=== PATIENT | male | born 1975 | race Caucasian/White ===

== ENCOUNTER 2019-08-07 18:43 | Emergency (ER) | payer BC ==
[2019-08-07] MEDS ORDERED: Aspirin 81 MG Tab.Chew PO ONE (18:57)
[2019-08-07 19:33] LABS: ANION GAP 13.6; CHLORIDE,CL 101 mmol/L (101-111); SODIUM,NA 138 mmol/L (135-145)
--- NOTE | 2019-08-07 19:53 | EDM.PDOC ---
<Mayela Irvin - Last Filed: 08/07/19 19:47> ED HPI GENERAL MEDICAL PROBLEM - General Chief Complaint: Chest Pain Stated Complaint: CHEST PAINS Time Seen by Provider: 08/07/19 19:10 Source of Information: Reports: Patient History Limitations: Reports: No Limitations - History of Present Illness INITIAL COMMENTS - FREE TEXT/NARRATIVE: Patient is a 44 year old male with PMH of MS presenting to the ED with chest pain that woke him up from sleep at 3am on 08/07. He awoke from a dream that he was dying from a heart attack. He describes the pain to be a sharp shock quality with 4/10 intensity, localized to the center of the chest without radiation, and independent of exertion. He denies SOB, cough, dizziness, lightheadedness, abdominal pain, melena or hematochezia. The pain lasts 1-2 seconds and he is able to carry on his tasks. He has had 4 episodes of this chest pain while in the ED. He reports more stress in the last 6 months including the sudden of his father. He ate hamburger, macaroni, tomato soup, and drank orange juice last night before bed. He denies taking ASA or ibuprofen other than occasionally if headaches occur. Denies smoking. Drinks ETOH moderately and occasionally. Onset: Sudden Onset Date: 08/07/19 Onset Time: 03:00 Duration: Other (1-2 sec) Location: Reports: Chest (center of chest ) Quality: Reports: Sharp Severity: Moderate Improves with: Reports: None Worsens with: Reports: None Mid-Sternal Pain Score (Numeric/FACES): 4 - Related Data Allergies Allergy/AdvReac Type Severity Reaction Status Date / Time No Known Allergies Allergy Verified 08/07/19 18:51 Home Meds: Home Meds Fingolimod HCl [Gilenya] 1 cap PO DAILY 08/07/19 [History] Past Medical History Neurological History: Reports: MS - Past Surgical History Neurological Surgical History: Reports: None Social & Family History - Family History Family Medical History: Noncontributory - Tobacco Use Smoking Status *Q: Unknown Ever Smoked Second Hand Smoke Exposure: No - Caffeine Use Caffeine Use: Reports: Coffee - Recreational Drug Use Recreational Drug Use: No ED ROS GENERAL - Review of Systems Constitutional: Reports: No Symptoms HEENT: Reports: No Symptoms Respiratory: Reports: No Symptoms Cardiovascular: Reports: Chest Pain Endocrine: Reports: No Symptoms GI/Abdominal: Reports: No Symptoms Neurological: Reports: No Symptoms Psychiatric: Reports: No Symptoms Course - Vital Signs Last Recorded V/S: Last Vital Signs Temp 97.7 F 08/07/19 18:48 Pulse 77 08/07/19 18:48 Resp 18 08/07/19 18:48 BP 123/79 08/07/19 20:57 Pulse Ox 100 08/07/19 18:48 - Orders/Labs/Meds Orders: Active Orders 24 hr Category Date Time Status EKG Documentation Completion [RC] DAILY Care 08/07/19 18:53 Active Labs: Laboratory Tests 08/07/19 08/07/19 08/07/19 Range/Units 19:02 19:02 19:02 WBC 7.8 (5.0-10.0) 10^3/uL RBC 4.83 (4.6-6.2) 10^6/uL Hgb 15.1 (14.0-18.0) g/dL Hct 44.1 (40.0-54.0) % MCV 91.3 (80-100) fL MCH 31.3 (27.0-34.0) pg MCHC 34.2 (33.0-35.0) g/dL Plt Count 187 (150-450) 10^3/uL Neut % (Auto) 69.8 (42.2-75.2) % Lymph % (Auto) 10.6 L (20.5-50.1) % Bay % (Auto) 13.4 H (2-8) % Eos % (Auto) 5.9 H (1.0-3.0) % Baso % (Auto) 0.3 (0.0-1.0) % Sodium 138 (135-145) mmol/L Potassium 3.6 (3.6-5.0) mmol/L Chloride 101 (101-111) mmol/L Carbon Dioxide 27.0 (21.0-31.0) mmol/L Anion Gap 13.6 BUN 13 (7-18) mg/dL Creatinine 1.0 (0.6-1.3) mg/dL Est Cr Clr Drug Dosing 113.32 mL/min Estimated GFR (MDRD) > 60 BUN/Creatinine Ratio 13.00 Glucose 117 H (74-105) mg/dL Calcium 8.9 (8.4-10.2) mg/dl Total Bilirubin 0.5 (0.2-1.0) mg/dL AST 18 (10-42) IU/L ALT 22 (10-60) IU/L Alkaline Phosphatase 65 (42-121) IU/L CK-MB (CK-2) 0.80 (0.4-4.7) ng/mL Troponin I < 0.02 (0.00-0.02) ng/ml Total Protein 7.2 (6.7-8.2) g/dl Albumin 4.3 (3.2-5.5) g/dl Globulin 2.9 Albumin/Globulin Ratio 1.48 Amylase 33 (28-100) U/L Lipase 33 (22-51) U/L 08/07/19 Range/Units 23:00 WBC (5.0-10.0) 10^3/uL RBC (4.6-6.2) 10^6/uL Hgb (14.0-18.0) g/dL Hct (40.0-54.0) % MCV (80-100) fL MCH (27.0-34.0) pg MCHC (33.0-35.0) g/dL Plt Count (150-450) 10^3/uL Neut % (Auto) (42.2-75.2) % Lymph % (Auto) (20.5-50.1) % Bay % (Auto) (2-8) % Eos % (Auto) (1.0-3.0) % Baso % (Auto) (0.0-1.0) % Sodium (135-145) mmol/L Potassium (3.6-5.0) mmol/L Chloride (101-111) mmol/L Carbon Dioxide (21.0-31.0) mmol/L Anion Gap BUN (7-18) mg/dL Creatinine (0.6-1.3) mg/dL Est Cr Clr Drug Dosing mL/min Estimated GFR (MDRD) BUN/Creatinine Ratio Glucose (74-105) mg/dL Calcium (8.4-10.2) mg/dl Total Bilirubin (0.2-1.0) mg/dL AST (10-42) IU/L ALT (10-60) IU/L Alkaline Phosphatase (42-121) IU/L CK-MB (CK-2) (0.4-4.7) ng/mL Troponin I < 0.02 (0.00-0.02) ng/ml Total Protein (6.7-8.2) g/dl Albumin (3.2-5.5) g/dl Globulin Albumin/Globulin Ratio Amylase (28-100) U/L Lipase (22-51) U/L Meds: Medications Discontinued Medications Generic Name Dose Route Start Last Admin Trade Name Nelly PRN Reason Stop Dose Admin Al Hydroxide/Mg Hydroxide 30 ml 08/07/19 20:08 08/07/19 20:22 Gi Cocktail PO 08/07/19 20:09 30 ml ONETIME ONE Administration Aspirin 324 mg 08/07/19 18:57 08/07/19 19:04 Aspirin PO 08/07/19 18:58 324 mg ONETIME ONE Administration Nitroglycerin 0.4 mg 08/07/19 20:19 08/07/19 20:57 Nitrostat SL 08/07/19 20:20 0.4 mg ONETIME ONE Administration Departure - Departure Disposition: Home, Self-Care 01 Clinical Impression: Atypical chest pain Gastroesophageal reflux disease Qualifiers: Esophagitis presence: without esophagitis Qualified Code(s): K21.9 - Gastro- esophageal reflux disease without esophagitis - Discharge Information Instructions: Food Choices for Gastroesophageal Reflux Disease, Adult, Easy-to- Read, Nonspecific Chest Pain Referrals: PCP,None [Ordering Only Provider] - Forms: ED Department Discharge Additional Instructions: [place] diet Follow up in clinic urgent follow up if symptoms worsen, - My Orders Last 24 Hours: My Active Orders 08/07/19 18:53 EKG Documentation Completion [RC] DAILY - Assessment/Plan Last 24 Hours: My Active Orders 08/07/19 18:53 EKG Documentation Completion [RC] DAILY Assessment:: Chest pain likely secondary to indigestion ACS rule out - EKG and CXR within normal limits - Labs including first troponin within normal limits - Will repeat a second trop in 4 hours - Will administer GI cocktail and reassess <Suzanne Johnson - Last Filed: 08/08/19 06:34> ED ROS GENERAL - Review of Systems Review Of Systems: See Below HEENT: Reports: Other (mild URI symptoms past couple days) : Reports: No Symptoms Neurological: Reports: Other (hx MS, Minimal sx, rare Left lower leg spasm) ED EXAM, GENERAL - Physical Exam Exam: See Below Exam Limited By: No Limitations General Appearance: Alert, No Apparent Distress, Anxious Eye Exam: Bilateral Eye: EOMI Ears: Normal External Exam, Hearing Grossly Normal Nose: Normal Inspection Throat/Mouth: Normal Inspection Head: Atraumatic, Normocephalic Neck: Normal Inspection, Full Range of Motion Respiratory/Chest: No Respiratory Distress, Normal Breath Sounds Cardiovascular: Normal Peripheral Pulses, Regular Rate, Rhythm, No Edema GI/Abdominal: Normal Bowel Sounds, Soft, Non-Tender Back Exam: Full Range of Motion Extremities: Normal Inspection, Normal Range of Motion Neurological: Alert, Oriented, Normal Cognition Psychiatric: Normal Affect, Normal Mood, Other (Expresses some worry since fathers recent . ) Skin Exam: Warm, Dry, Intact, Normal Color Course - Radiology Interpretation Free Text/Narrative:: [facility] Final Radiology Report Call: [phone] assistance Online chat: [email or web address] Name: MARIAM VALADEZ Age: 44Years M Date: 08/07/2019 SSN: -- : [id number] Study: XR CHEST 1 VIEW FRONTAL Requesting Physician: SUZANNE JOHNSON Images: 2 Addl Studies: Provided Clinical History: Contrast: Contrast Medium: Contrast Amount: Contrast Method: CONFIDENTIALITY STATEMENT This report is intended only for use by the referring physician, and only in accordance with law. If you received this in error, call [phone]. Page 1 of 1 PROCEDURE INFORMATION: Exam: XR Chest, 1 View Exam date and time: 08/07/2019 7:06 PM Clinical history: 44 years old, male; Chest pain; Type not specified TECHNIQUE: Imaging protocol: XR of the chest Views: 1 view. COMPARISON: No relevant prior studies available. FINDINGS: Tubes, catheters and devices: EKG leads overlie the chest. Lungs: Unremarkable. No consolidation. Pleural space: Unremarkable. No pleural effusion. No pneumothorax. Heart/Mediastinum: Unremarkable. No cardiomegaly. Bones/joints: Unremarkable. IMPRESSION: No acute findings. Thank you for allowing us to participate in the care of your patient. Dictated and Authenticated by: Dez Diaz MD 08/07/2019 7:28 PM Central Time ([place] & [place]) - Re-Assessments/Exams Free Text/Narrative Re-Assessment/Exam: I have examined the patient. I have discussed findings and treatment plan with Resident. I agree with the assessment and paln in resident's notes. Orders entered by resident appropriate for patient. Departure - Departure Time of Disposition: 00:03 Condition: Good - Discharge Information *PRESCRIPTION DRUG MONITORING PROGRAM REVIEWED*: Not Applicable *COPY OF PRESCRIPTION DRUG MONITORING REPORT IN PATIENT BAMBI: Not Applicable
[2019-08-07] MEDS ORDERED: GI Cocktail Oral Solution 30 ML PO ONE (20:08)
[2019-08-07] MEDS ORDERED: Nitroglycerin 0.4 MG Tab.SL SL ONE (20:19)
== END 2019-08-08 00:13 | disposition home or self-care (01) ==
LOC: DL.ED 18:43
DX: K21.9 Gastro-esophageal reflux disease without esophagitis (principal); R07.89 Other chest pain; G35 Multiple sclerosis; Z79.899 Other long term (current) drug therapy
CPT/HCPCS: 36415; 71045; 80053; 82150; 82553; 83690; 84484; 85025; 93005; 99285; A9270

== ENCOUNTER 2019-09-11 21:24 | Emergency (ER) | payer BC ==
--- NOTE | 2019-09-11 22:45 | EDM.PDOC ---
ED HPI GENERAL MEDICAL PROBLEM - General Chief Complaint: Lower Extremity Injury/Pain Stated Complaint: LEFT FOOT PAIN Time Seen by Provider: 09/11/19 21:35 Source of Information: Reports: Patient, RN, RN Notes Reviewed History Limitations: Reports: No Limitations - History of Present Illness INITIAL COMMENTS - FREE TEXT/NARRATIVE: patient reports previous left ankle injury 3 with reconstruction surgery done Onset: Today Onset Date: 09/11/19 Onset Time: 21:00 Duration: Hour(s): (one hour prior to ER visit) Location: Reports: Lower Extremity, Left Quality: Reports: Ache, Throbbing Severity: Mild Improves with: Reports: Cold Therapy Worsens with: Reports: Movement Context: Reports: Other (patient reports he tripped on his dog while in martial arts class and sustain an eversion injury. patient states he heard something pop in his left little toe.) Associated Symptoms: Reports: Other (immediate pain) Treatments PCU RN: Reports: NSAIDS (he reports taking 600 mg of ibuprofen. Pain is down to a 2/10 with rest.) Left Toe-Little Pain Score (Numeric/FACES): 8 - Related Data Allergies Allergy/AdvReac Type Severity Reaction Status Date / Time No Known Allergies Allergy Verified 09/11/19 21:41 Home Meds: Home Meds Fingolimod HCl [Gilenya] 1 cap PO DAILY 08/07/19 [History] Past Medical History Gastrointestinal History: Reports: GERD Neurological History: Reports: MS - Past Surgical History Neurological Surgical History: Reports: None Musculoskeletal Surgical History: Reports: Other (See Below) Other Musculoskeletal Surgeries/Procedures:: lt ankle broken x3 with reconstructive surgery Social & Family History - Family History Family Medical History: Noncontributory - Tobacco Use Smoking Status *Q: Never Smoker Second Hand Smoke Exposure: No - Caffeine Use Caffeine Use: Reports: None - Recreational Drug Use Recreational Drug Use: No Review of Systems - Review of Systems Review Of Systems: ROS reveals no pertinent complaints other than HPI. ED EXAM, GENERAL - Physical Exam Exam: See Below Exam Limited By: No Limitations General Appearance: Alert, WD/WN, No Apparent Distress Peripheral Pulses: 4+: Posterior Tibial (L), Dorsalis Pedis (L) Extremities: Normal Inspection, Normal Capillary Refill, Limited Range of Motion (of the left little toedue to pain. No bruisingor swelling noted at this time), Other (R aspect of the left fifth toe tender to palpation.) Skin Exam: Warm, Intact Course - Vital Signs Last Recorded V/S: Last Vital Signs Temp 98.9 F 09/11/19 21:30 Pulse 84 09/11/19 21:30 Resp 16 09/11/19 21:30 BP 130/82 09/11/19 21:30 Pulse Ox 100 09/11/19 21:30 - Orders/Labs/Meds Orders: Active Orders 24 hr Category Date Time Status Foot 2V Lt [CR] Urgent Exams 09/11/19 21:35 Taken - Radiology Interpretation Free Text/Narrative:: Left foot xray FINDINGS: Bones/joints: Nondisplaced mid to distal fifth metatarsal spiral fracture. Soft tissues: Unremarkable. IMPRESSION: Fifth metatarsal fracture Departure - Departure Time of Disposition: 22:41 Disposition: Home, Self-Care 01 Condition: Good Clinical Impression: Closed fracture of metatarsal bone - Discharge Information *PRESCRIPTION DRUG MONITORING PROGRAM REVIEWED*: Not Applicable *COPY OF PRESCRIPTION DRUG MONITORING REPORT IN PATIENT BAMBI: Not Applicable Instructions: Metatarsal Fracture Referrals: Marsha Patton NP [Primary Care Provider] - Forms: ED Department Discharge Additional Instructions: Encouraged to RICE and follow up with PCP in five days. Symptoms to return to the ER reviewed with patient and also included in the AVS. Care Plan Goals: x-rays results reviewed with patient. feet metatarsal fracture noted. Left walking boot applied with crutches. Follow-up with PCP in 5 days. Instructions on fracture care included in the AVS - My Orders Last 24 Hours: My Active Orders 09/11/19 21:35 Foot 2V Lt [CR] Urgent - Assessment/Plan Last 24 Hours: My Active Orders 09/11/19 21:35 Foot 2V Lt [CR] Urgent
== END 2019-09-11 22:51 | disposition home or self-care (01) ==
LOC: DL.ED 21:24
DX: S92.355A Nondisplaced fracture of fifth metatarsal bone, left foot, initial encounter for closed fracture (principal); W01.0XXA Fall on same level from slipping, tripping and stumbling without subsequent striking against object, initial encounter
CPT/HCPCS: 73620-LT; 73630-LT; 99283-25

== ENCOUNTER 2023-02-14 16:52 | Emergency (ER) | payer BC ==
[2023-02-14 17:44] LABS: ANION GAP 10.8 mEq/L (7-13); CHLORIDE,CL 100 mmol/L (98-107); SODIUM,NA 139 mmol/L (136-145)
[2023-02-14 17:47] LABS: ESTIMATED GFR 75 mL/min (>=60)
== END 2023-02-14 20:14 | disposition home or self-care (01) ==
LOC: DL.ED 16:52
DX: K64.8 Other hemorrhoids (principal)
CPT/HCPCS: 36415; 80053; 82272; 85025; 85610; 99283; 99284